=== PATIENT | male | born 1955 | race African-American/Black ===

== ENCOUNTER 2018-12-03 12:04 | Inpatient (IN) | payer BC, MEDICARE ==
[~2018-12-03] VITALS: Ht 188 cm; Wt 93.4 kg
[2018-12-03] MEDS: ASCORBIC ACID 500 MG TABLET PO SCH (00:18)
[~2018-12-03 12:04] MED LIST: FENT1PAT4 TD; HYDR-519 PO; OXYC10TA58 PO
[2018-12-03] MEDS ORDERED: SODIUM CHLORIDE 0.9% 1000ML BAG (SEPSIS BOLUS) IV ONE (12:45)
[2018-12-03 13:03] LABS: BASOPHILS % 0.7 % (0.0-2.0); EOSINOPHILS % 2.7 % (0.0-5.0); HEMATOCRIT. 45.8 % (42.0-52.0); HEMOGLOBIN. 15.5 g/dL (14.0-18.0); LYMPHOCYTES % 22.4 % (20.0-50.0); MEAN CORPUSCULAR HEMOGLOBIN 33.4 pg (28.0-32.0); MEAN CORPUSCULAR VOLUME 98.8 fL (80.0-94.0); MONOCYTES % 9.6 % (2.0-8.0); NEUTROPHILS % 64.6 % (40.0-76.0); PLATELET 118 x1000/uL (130-400); RED BLOOD CELL COUNT 4.64 mill/uL (4.7-6.1); RED CELL DISTRIBUTION WIDTH 13.5 % (11.6-14.6)
[2018-12-03 13:10] LABS: CHLORIDE 102 mEq/L (98-107); INR 1.1; PROTHROMBIN TIME 10.9 sec (9.1-11.1)
[2018-12-03] MEDS ORDERED: AZITHROMYCIN 500 MG in DEXT 5% WATER 250 ML IV SCH (14:00)
[2018-12-03] MEDS ORDERED: CEFTRIAXONE 1 G PREMIX 50 ML IV ONE (14:00)
[2018-12-03 15:07] LABS: CLARITY URINE CLOUDY (CLEAR); COLOR URINE YELLOW (YELLOW); KETONES URINE NEGATIVE (NEGATIVE); LEUKOCYTE ESTERASE URINE 1+ (NEGATIVE); NITRITE URINE NEGATIVE (NEGATIVE); OCCULT BLOOD URINE NEGATIVE (NEGATIVE); PROTEIN URINE NEGATIVE (NEGATIVE); SPECIFIC GRAVITY URINE 1.015 (1.005-1.030)
[2018-12-03] MEDS ORDERED: ACETAMINOPHEN 500MG TABLET PO ONE (16:00)
[2018-12-03] MEDS ORDERED: ACETAMINOPHEN 325MG TABLET PO PRN (16:30)
[2018-12-03] MEDS ORDERED: CLONIDINE 0.1MG TABLET PO PRN (16:30)
[2018-12-03] MEDS ORDERED: DOCUSATE SODIUM 100MG CAPSULE PO PRN (16:30)
[2018-12-03] MEDS ORDERED: MAGNESIUM/ALUMINUM HYDROXIDE/SIMETHICONE 30ML UDC PO PRN (16:30)
[2018-12-03] MEDS ORDERED: ONDANSETRON HCL 4MG/2ML INJ IV PRN (16:30)
[2018-12-03] MEDS ORDERED: GUAIFENESIN 200MG/10ML SUGAR FREE UDC PO PRN (16:30)
[2018-12-03] MEDS ORDERED: LORAZEPAM 0.5MG TABLET PO PRN (16:30)
[2018-12-03] MEDS ORDERED: ZOLPIDEM TARTRATE 5MG TABLET PO PRN (16:30)
[2018-12-03] MEDS ORDERED: IPRATROPIUM/ALBUTEROL 0.5-3(2.5)MG/3ML NEB INH PRN (16:30)
[2018-12-03 19:29] LABS: *AMPHETAMINES SCREEN URINE NEGATIVE (NEGATIVE); *BARBITURATES SCREEN URINE NEGATIVE (NEGATIVE); *BENZODIAZEPINES SCREEN URINE NEGATIVE (NEGATIVE)
[2018-12-03 19:30] LABS: *COCAINE SCREEN URINE PRESUMTIVE POSITIVE (NEGATIVE); CANNABINOID URINE SCREEN PRESUMTIVE POSITIVE (NEGATIVE); METHADONE URINE SCREEN NEGATIVE (NEGATIVE); OPIATES URINE SCREEN NEGATIVE (NEGATIVE); PHENCYCLIDINE URINE SCREEN NEGATIVE (NEGATIVE)
[2018-12-03] MEDS ORDERED: LEVOFLOXACIN 500MG PREMIX 100 ML IV NR (22:00)
[2018-12-03] MEDS ORDERED: KETOROLAC 15MG/ML VIAL IV PRN (22:24)
[2018-12-03] MEDS ORDERED: MORPHINE SULFATE 4 MG/ML CPJ (NOT FOR IM USE) IV PRN (22:24)
[2018-12-03] MEDS ORDERED: TRAMADOL 50MG TABLET PO PRN (22:25)
[2018-12-03] MEDS: FAMOTIDINE 20MG TABLET PO SCH (23:15)
[2018-12-03 23:30] VITALS: BP 175/63
[2018-12-04] VITALS (7 sets, daily range): BP systolic 122–175; BP diastolic 74–93
[2018-12-04] MEDS: SODIUM CHLORIDE 0.9% 1,000 ML IV SCH ×3 (00:07→18:49)
[2018-12-04] MEDS: ENOXAPARIN 40MG/0.4ML SYR SUBCUT SCH (08:00)
[2018-12-04] MEDS: FAMOTIDINE 20MG TABLET PO SCH ×2 (09:00→21:00)
[2018-12-04] MEDS: ASCORBIC ACID 500 MG TABLET PO SCH ×2 (09:00→21:00)
[2018-12-04] MEDS ORDERED: CEFTRIAXONE 1 G PREMIX 50 ML IV SCH (09:00)
[2018-12-04] MEDS: ZINC SULFATE 220 MG ( 50 ) CAPSULE PO SCH (09:00)
[2018-12-04 11:47] LABS: CREATINE KINASE MB FRACTION 1.6 ng/mL (0.5-3.6)
[2018-12-04] MEDS: CEFTRIAXONE 1,000 MG in DEXTROSE 5% WATER 50 ML IV SCH (14:50)
[2018-12-04] MEDS ORDERED: LEVOFLOXACIN 500MG PREMIX 100 ML IV SCH (21:00)
[2018-12-04] MEDS: LEVOFLOXACIN 500MG PREMIX 100 ML IV SCH (22:30)
[2018-12-05] VITALS (7 sets, daily range): BP systolic 136–169; BP diastolic 86–99
[2018-12-05] MEDS: SODIUM CHLORIDE 0.9% 1,000 ML IV SCH ×2 (06:31→15:25)
[2018-12-05] MEDS: ENOXAPARIN 40MG/0.4ML SYR SUBCUT SCH (08:00)
[2018-12-05] MEDS: ZINC SULFATE 220 MG ( 50 ) CAPSULE PO SCH (09:00)
[2018-12-05] MEDS: FAMOTIDINE 20MG TABLET PO SCH ×2 (09:00→21:00)
[2018-12-05] MEDS: ASCORBIC ACID 500 MG TABLET PO SCH ×2 (09:00→21:00)
[2018-12-05] MEDS: CEFTRIAXONE 1,000 MG in DEXTROSE 5% WATER 50 ML IV SCH (15:21)
[2018-12-05] MEDS: LEVOFLOXACIN 500MG PREMIX 100 ML IV SCH (20:58)
[2018-12-06] VITALS: BP 142/89
[2018-12-06 04:00] VITALS: BP 148/100
[2018-12-06 07:58] VITALS: BP 147/93
[2018-12-06] MEDS: ENOXAPARIN 40MG/0.4ML SYR SUBCUT SCH (08:00)
[2018-12-06] MEDS: ZINC SULFATE 220 MG ( 50 ) CAPSULE PO SCH (09:00)
[2018-12-06] MEDS: FAMOTIDINE 20MG TABLET PO SCH (09:00)
[2018-12-06] MEDS: ASCORBIC ACID 500 MG TABLET PO SCH (09:00)
[2018-12-06 12:00] VITALS: BP 151/78
[2018-12-06 12:41] VITALS: BP 147/93
== END 2018-12-06 14:40 | disposition home or self-care (01) | DRG 872 ==
LOC: ER 12:04 → 8WST 15:48 → EDBEDREQ 15:56 → EDBEDREQSVC 15:56 → SUPCPDRO 16:22 → ENRESERV 20:25
PROVIDERS: ADMIT Internal Medicine; ATTEND Internal Medicine
DX: A41.9 Sepsis, unspecified organism (principal); G82.20 Paraplegia, unspecified; N39.0 Urinary tract infection, site not specified; E87.1 Hypo-osmolality and hyponatremia; L89.151 Pressure ulcer of sacral region, stage 1; L89.159 Pressure ulcer of sacral region, unspecified stage; Z91.013 Allergy to seafood; Z79.1 Long term (current) use of non-steroidal anti-inflammatories (NSAID); Z79.899 Other long term (current) drug therapy
CPT/HCPCS: 36415; 71045; 80061; 80305; 82550; 82553; 83036; 83605; 84145; 84484; 87077; 87186; 87804; 93005; 93306; 93970; 96365; 96366; 96367; 96368; 99291; J0456; J0696; J1650; J1956; J7030; J7060